=== PATIENT | female | born 1955 | race Caucasian/White ===

== ENCOUNTER → 2023-11-22 10:01 | Outpatient (REF) | payer MEDICARE, SELFPAY | LOC: WDC 10:01 | PROVIDERS: ATTENDING PHYSICIAN Family Medicine | DX: M85.89 Other specified disorders of bone density and structure, multiple sites (principal); Z12.31 Encounter for screening mammogram for malignant neoplasm of breast | CPT/HCPCS: 77063; 77067; 77080 ==

== ENCOUNTER 2024-06-09 06:50 | Day surgery (SDC) | payer MEDICARE, SELFPAY ==
--- NOTE | 2024-06-09 08:54 | ITS.CL.CARDI ---
Procurement Director - Cardioversion
Cardioversion
Procedure Report:
Date of Procedure: June 09 2024
Procedure: Cardioversion
Indication: Symptomatic atrial fibrillation
Performing Physician: Tony Andrews DO, FACC
Technique: The patient was brought to the holding area. Signed informed consent was obtained. A time out was called and performed. The patient was anesthetized by the anesthesia service. Anticoagulation status was reviewed and appropriate. R2 pads
were placed anteriorly and posteriorly. A 200 J synchronized biphasic shock restored normal sinus rhythm without significant bradycardia. There were no complications.
Conclusion: Uncomplicated cardioversion from atrial fibrillation to sinus rhythm.
Recommendation: Routine post cardioversion care. Continue nursing home anticoagulation.
== END 2024-06-09 09:25 | disposition home or self-care (01) ==
LOC: CATH 06:50
PROVIDERS: ATTENDING PHYSICIAN Nuclear Medicine Nuclear Cardiology; FAMILY PHYSICIAN Family Medicine; OTHER PHYSICIAN Internal Medicine Cardiovascular Disease
DX: I48.0 Paroxysmal atrial fibrillation (principal); I34.0 Nonrheumatic mitral (valve) insufficiency; Z79.01 Long term (current) use of anticoagulants
CPT/HCPCS: 92960; 93005

== ENCOUNTER → 2024-06-19 09:08 | Outpatient (REF) | payer MEDICARE, SELFPAY | LOC: RCS 09:08 | PROVIDERS: ATTENDING PHYSICIAN Internal Medicine Cardiovascular Disease; FAMILY PHYSICIAN Family Medicine | DX: I48.0 Paroxysmal atrial fibrillation (principal) | CPT/HCPCS: 93306 ==

== ENCOUNTER → 2024-12-25 07:59 | Outpatient (REF) | payer MEDICARE, SELFPAY | LOC: HWRCS 07:59 | PROVIDERS: ATTENDING PHYSICIAN Nurse Practitioner; FAMILY PHYSICIAN Family Medicine | DX: R07.89 Other chest pain (principal); I48.0 Paroxysmal atrial fibrillation | CPT/HCPCS: 78452; 93017; A9500; J2785 ==

== ENCOUNTER 2025-01-27 06:04 | Day surgery (SDC) | payer MEDICARE, SELFPAY ==
[2025-01-14 09:28] VITALS: BMI 37.6
[2025-01-27] VITALS (13 sets, daily range): BP systolic 88–137; BP diastolic 60–89
[2025-01-27] MEDS: NSS 500 IV (07:26)
--- NOTE | 2025-01-27 08:10 | ITS.CL.ABL ---
Eligibility Worker - Ablation
Ablation
Procedure Report:
ELECTROPHYSIOLOGIC STUDY AND POSSIBLE ABLATION
DATE: January 27, 2025
Primary Care Provider: Dr. Ketan Fritz
Primary Engineering Leader: Dr Nora Gomez
INDICATION:
Symptomatic Atrial Fibrillation.
She has symptomatic persistent atrial fibrillation duration less than 1 year.
She underwent cardioversion 06/09/2024 and had recurrence 10 days later. She remains in persistent A-fib.
HISTORY: See H and P.
Symptomatic AF, poorly controlled with attempted medical therapy
HAS-BLED: 1
Age
CHADSVASc: 2
Age
F Gender
PRESENTING RHYTHM: AF
HISTORY: See H and P.
Symptomatic AF, poorly controlled with attempted medical therapy.
ANTICOAGULATION: Apixaban 5 mg twice daily
'TIME-OUT': called and confirmed.
SEDATION/ANESTHESIA: provided via the anesthesia department using general anesthesia.
PROCEDURE:
Ultrasound Guidance with real-time visualization of needle insertion and vessel patency performed by or for femoral venous Vascular Access.
Under real-time US guidance, the needle was advanced with negative pressure into the vein. The needle was seen entering the vessel lumen with a good return of dark red flow, the syringe was removed, non-pulsatile, dark red blood low was noted and
the wire was passed without difficulty, then the needle was removed. US confirmed the wire was in the vein, not going into an artery,
Images were taken and saved for the patient's permanent record. Imaging findings typical femoral venous anatomy. Direct visualization of needle puncture into the femoral vein was observed and recorded.
A decapolar CS catheter was placed within the CS for mapping and pacing.
External synchronized DCCV was used to restore sinus rhythm.
The intracardiac ultrasound catheter was positioned in the RA for continuous intracardiac ultrasound imaging.
Heparin bolus and infusion to target ACT at 300 -350 seconds was administered. Transseptal puncture was performed. This entailed advancing a sheath with dilator into the superior vena cava and withdrawing both (monitoring intracardiac ultrasound,
fluoroscopy and tip pressure) with the tip oriented toward the atrial septum. The fossa ovalis was engaged (indicated by sudden displacement of the sheath tip as well as tenting of the fossa seen on intracardiac ultrasound).
The [employer] transseptal system was used. Left atrial catheter position was confirmed by echocardiographic imaging and fluoroscopy followed by RF delivery using the [employer] system resulting in successful LA access with pressure monitoring
demonstrating LA pressure waveforms (LA mean pressure 10 mm Hg). The sheath was advanced over the dilator and positioned in the left atrium.
The [employer] Grid multipolar mapping catheter was initially positioned through the transseptal sheath for high density mapping.
Geometry and voltage mapping was performed using the Roman multipolar grid catheter. Ensite-X was utilized for three-dimensional electroanatomical mapping.
A 3-D map was created using Ensite-X in Voxel mode. A 3-D reconstructed CT image was compared to the 3-D [employer] map to assist in anatomic evaluation, mapping and ablation.
The [employer] PFA catheter and system was used for cardiac ablation. Catheter positioning was guided and confirmed using both I.C.E. and fluoroscopy.
PV isolation approach was used to electrically isolate each PV ostia (LSPV, LIPV, RSPV, RIPV).
Additional energy applications/additional ablation set was required to accomplish wide area circumferential ablation around each of the pulmonary vein sets and additionally ablation to accomplish LA posterior wall ablation.
Remapping with the Roman multipolar grid catheter found that all PVPs were eliminated at each vein demonstrating entrance block. Also pacing from the multipolar mapping catheter around the the circumference of the ostia was performed at 10 ma and
2.0 msec output to assess for exit block. This demonstrated electrical isolation at each of the pulmonary vein ostia (LSPV, LIPV, RSPV, RIPV). There is also entrance and exit block at the LA posterior wall. Initially, ablation about the RSPV
resulted in less than wide area electrical isolation anteriorly so additional PFA deliveries were required to result in the desired degree if wide area ablation.
Programmed electrostimulation failed to induce any sustained arrhythmias.
I.C.E. :
Pre-Ablation Post-Ablation
LVEF: 55 % 55 %
WMA: none none
Pericardial effusion: trace posterior trace posterior
COMPLICATIONS:
none
SUMMARY:
- Mapping and ablation to isolate the PVs
- Additional AF ablation set after PVI.
- 3-D Electroanatomical Mapping
- Intracardiac Ultrasound
- Ultrasound guidance for vascular access
Post ablation, I discussed today's findings and results with the patient's , [place].
RECOMMENDATIONS:
- Observe in monitored bed.
- Maintain oral anticoagulation.
- Continue [ ]
- Office visit with me is scheduled for May 29, 2025
- Continue cardiovascular care with Dr. Nora Gomez
Copy to:
Dr. Ketan Fritz
Dr Nora Gomez
[2025-01-27 09:24] LABS: ACT-LR - POC 321 Seconds (116-155)
[2025-01-27] MEDS: TYLENOL 650 MG PO (12:11)
[2025-01-27] MEDS: ANESTHETIC LOZENGE 1 LOZENGE PO (12:12)
--- NOTE | 2025-01-27 15:10 | W.PN.UPDATE ---
Update Note
Progress Note Update
Pt seen post PFA. Right groin site without ht/bleeding, oob ambulating. Post EKG NSR 70s, no acute changes. Resume eliquis tonight at usual time. Followup at [facility] as scheduled. Home today if groin site/tele remain stable.
[2025-01-28 13:20] LABS: ACT-LR - POC > 397 Seconds (116-155)
== END 2025-01-27 14:48 | disposition home or self-care (01) ==
LOC: CATH 06:04
PROVIDERS: ATTENDING PHYSICIAN Internal Medicine Cardiovascular Disease; FAMILY PHYSICIAN Family Medicine; OTHER PHYSICIAN Internal Medicine Cardiovascular Disease
DX: I48.19 Other persistent atrial fibrillation (principal); Z88.0 Allergy status to penicillin; Z79.01 Long term (current) use of anticoagulants
CPT/HCPCS: C1732; C1894; C1730; C1892; 85347; 86900; 86901; 93005; 93656; 93657; C1733; C1766